=== PATIENT | female | born 1970 | race Caucasian/White ===

== ENCOUNTER 2017-06-04 11:24 | Emergency (ER) | payer OTHER ==
[~2017-06-04 11:24] MED LIST: CIPR500T4 PO; LISI-586 PO
[2017-06-04 11:26] VITALS: BP 212/98; PULSE 93; RESP 18; TEMP 98.4; O2SAT 98
[2017-06-04 11:43] VITALS: BP 192/96
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
[2017-06-04] MEDS ORDERED: IBUPROFEN 800 MG TAB PO ONE (12:00)
[2017-06-04 12:54] VITALS: BP 189/85; PULSE 79; RESP 18; O2SAT 97
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
[2017-06-04] MEDS ORDERED: CYCL5TAB PO (13:06)
== END 2017-06-04 13:17 | disposition home or self-care (01) ==
LOC: PHED 11:24
DX: S13.4XXA Sprain of ligaments of cervical spine, initial encounter (principal); I10 Essential (primary) hypertension; Z87.19 Personal history of other diseases of the digestive system; Z85.528 Personal history of other malignant neoplasm of kidney; V89.2XXA Person injured in unspecified motor-vehicle accident, traffic, initial encounter
CPT/HCPCS: 72050; 99283; L0150